=== PATIENT | male | born 1955 | race Caucasian/White ===

== ENCOUNTER 2018-05-30 07:38 | Emergency (ER) | payer BC ==
[2018-05-30 07:53] VITALS: BP 172/85
--- NOTE | 2018-05-30 08:30 | UC ---
Skin Complaint HPI - HPI Summary HPI Summary: This is a 62 year old man with a chief complaint of swelling, pain of left thumb beginning 7 ago with redness after pulling at "hangnail." PAIN INTENSITY NOW: mild COURSE: was red; swelling began 12 hours ago; now more uncomfortable QUALITY: sharp LOCATION: distal left thumb, dorsum; at cuticle MADE WORSE BY: flexion of thumb RELIEVED BY: extension Note: 175/85, NOT on hyptensive medication Nurses note: over weekend pt pulled a hand nail from left thumb, now swollen and slightly reddened - History of Current Complaint Chief Complaint: UCSkin Time Seen by Provider: 05/30/18 08:19 Stated Complaint: SKIN ISSUE ON THUMB Pain Intensity: 4 - Allergy/Home Medications Allergies/Adverse Reactions: Allergies Allergy/AdvReac Type Severity Reaction Status Date / Time No Known Allergies Allergy Verified 12/25/14 12:59 PMH/Surg Hx/FS Hx/Imm Hx - Additional Past Medical History Additional PMH: VISIT HISTORY: non contributory MEDICATIONS: no meds for htn CHRONIC CONDITIONS: none Family history significant for: no chronic illnesses SMOKING: no ALCOHOL: no 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 LIVING CONDITIONS: lives with Previously Healthy: Yes - Surgical History Surgical History: None - Social History Alcohol Use: None Substance Use Type: None Smoking Status (MU): Never Smoked Tobacco Review of Systems All Other Systems Reviewed And Are Negative: Yes Constitutional: Positive: Negative Skin: Positive: Other - paronychia dorsum of left thumb, mild paiin Eyes: Positive: Negative ENT: Positive: Negative Respiratory: Positive: Negative Cardiovascular: Positive: Negative Gastrointestinal: Positive: Negative Genitourinary: Positive: Negative Motor: Positive: Negative Neurovascular: Positive: Negative Musculoskeletal: Positive: Negative Neurological: Positive: Negative Psychological: Positive: Negative Is Patient Immunocompromised?: No Physical Exam - Summary Physical Exam Summary: Appearance: The patient is well-appearing, is in no pain or distress, and is well-nourished. Eyes: Conjunctiva are clear. Pupils are equal and reactive to light and accommodation. Extra ocular muscle movement is intact. ENT: The hearing is grossly normal, the pharynx is normal, and the TMs are normal. There is no muffled or hoarse voice. No stridor. Neck: The neck is supple and there is no lymphadenopathy. Respiratory: The chest is nontender to palpation and without crepitus. The lungs are clear, there are normal breath sounds, and there is no respiratory distress. No wheezes, rales or rhonchi. Cardiovascular: Heart sounds reveal a regular rate and rhythm. There are no clicks, rubs or murmurs. There are no carotid bruits or thrills. Circulation is grossly intact. Abdomen: The abdomen is soft and nontender. There is no organomegaly. Bowel sounds are present and within normal limits. No point tenderness at McBurneys point. Musculoskeletal: Strength is intact. The patient moves all extremities. x. Neurological: The patient is alert. Motor and sensory are examination grossly intact. Speech is normal. Psychological: The patient displays age appropriate behavior Skin: Dorsum of left thumb, radial aspect, paronychia, approximately 2.0 cm; mild surrounding erythema but no ascending lymphangitis or cellulitis.. Triage Information Reviewed: Yes Vital Signs: Initial Vital Signs Temp 97.7 F 05/30/18 07:48 Pulse 60 05/30/18 07:48 Resp 18 05/30/18 07:48 BP 172/85 05/30/18 07:48 Pulse Ox 98 05/30/18 07:48 Procedures - Incision and Drainage Left Finger Dorsal Site: THUMB, left: paronychia; WARM water soak; pus released with 11 blade. Anesthesia: Other - none Instrument(s): Scalpel - 11 blADE Packing: Other - cultured; dressed Course/Dx - Course Course Of Treatment: 62-year-old with paronychia of the left thumb and some mild surrounding cellulitis. Pus was released with an 11 blade and cultured. Patient was instructed to follow up in 2 days. He will be started on Keflex. He needs to follow up for hypertension. MEDS REVIEWED. HYPERTENSION NOTED AND DISCUSSED. PATIENT WILL FOLLOW UP IN 2 DAYS FOR BOTH. - Differential Diagnoses - Skin Complaint Differential Diagnoses: Abscess, Other - hypertension - Diagnoses Provider Diagnosis: Paronychia of finger of left hand, Hypertension Discharge - Sign-Out/Discharge Documenting (check all that apply): Patient Departure All imaging exams completed and their final reports reviewed: No Studies - Discharge Plan Condition: Stable Disposition: HOME Prescriptions: Cephalexin CAP* [Keflex 500 CAP*] 500 mg PO TID #15 cap MDD 3 Patient Education Materials: Paronychia (ED), Hypertension (ED) Referrals: No Primary Care Phys,NOPCP [Primary Care Provider] - Additional Instructions: WE DISCUSSED: PLEASE SEEK CARE AT THE EMERGENCY DEPARTMENT IF SYMPTOMS WORSEN OR IF NEW SYMPTOMS DEVELOP. FOLLOW UP WITH YOUR PRIMARY CARE PHYSICIAN IF CONDITION CONTINUES BEYOND 3 DAYS WITHOUT IMPROVEMENT. YOUR DIAGNOSIS IS: paronychia; hypertension YOUR PRESCRIPTION RECOMMENDATION IS: keflex, 3 times a day for 5 days OTHER INSTRUCTIONS: Hypertension Discharge Instructions: Your blood pressure reading today was elevated, indicating HYPERTENSION. Follow- up with your primary care provider within 2 weeks for blood pressure check and appropriate recommendations and treatment, as needed. FOR PAIN AND/OR SLEEP: For pain: Ibuprofen (Motrin and other brand names) 400-600mg PLUS acetaminophen (Tylenol and other brand names) 500mg - 1000mg every 8 hours. Maximum is 3 doses a day. If this dosage is required for more than 5 days, you should re-check with your doctor. The combination of these two over-the- counter medications can be more effective than each one taken alone. Please check with the pharmacist if you have questions about your allergies to these medications. - Billing Disposition and Condition Condition: STABLE Disposition: Home
--- NOTE | 2018-05-30 16:31 | UC ---
- Progress Note Progress Note: 05/30/2018 Lab called and reports wound culture positive for MRSA. Pt Rx keflex PO. please call back Pt and advised to stop taking Keflex PO and start Bactrim PO which was sent to pharmacy. Thank you Avis Gamble PA-C Course/Dx - Diagnoses Provider Diagnoses: Paronychia of finger of left hand, Hypertension Discharge - Sign-Out/Discharge Documenting (check all that apply): Patient Departure - d/C home All imaging exams completed and their final reports reviewed: No Studies - Discharge Plan Condition: Stable Disposition: HOME Prescriptions: Sulfamethox/Trimethoprim DS* [Bactrim DS 800/160 TAB*] 1 tab PO BID #20 tab Patient Education Materials: Paronychia (ED), Hypertension (ED) Referrals: No Primary Care Phys,NOPCP [Primary Care Provider] - Additional Instructions: WE DISCUSSED: PLEASE SEEK CARE AT THE EMERGENCY DEPARTMENT IF SYMPTOMS WORSEN OR IF NEW SYMPTOMS DEVELOP. FOLLOW UP WITH YOUR PRIMARY CARE PHYSICIAN IF CONDITION CONTINUES BEYOND 3 DAYS WITHOUT IMPROVEMENT. YOUR DIAGNOSIS IS: paronychia; hypertension YOUR PRESCRIPTION RECOMMENDATION IS: keflex, 3 times a day for 5 days OTHER INSTRUCTIONS: Hypertension Discharge Instructions: Your blood pressure reading today was elevated, indicating HYPERTENSION. Follow- up with your primary care provider within 2 weeks for blood pressure check and appropriate recommendations and treatment, as needed. FOR PAIN AND/OR SLEEP: For pain: Ibuprofen (Motrin and other brand names) 400-600mg PLUS acetaminophen (Tylenol and other brand names) 500mg - 1000mg every 8 hours. Maximum is 3 doses a day. If this dosage is required for more than 5 days, you should re-check with your doctor. The combination of these two over-the- counter medications can be more effective than each one taken alone. Please check with the pharmacist if you have questions about your allergies to these medications. - Billing Disposition and Condition Condition: STABLE Disposition: Home
== END 2018-05-30 08:54 | disposition home or self-care (01) ==
LOC: UCEAST 07:38
DX: L03.012 Cellulitis of left finger (principal); I10 Essential (primary) hypertension
CPT/HCPCS: 10060; 87070; 87077; 87186; 87205; 87640; 87641; 99212; G0463